=== PATIENT | male | born 1970 | race African-American/Black ===

== ENCOUNTER 2022-10-23 17:34 | Emergency (ER) | payer OTHER, SELFPAY ==
--- NOTE | 2022-10-23 17:38 | ED.URI ---
HPI - URI/Sore Throat General Chief Complaint: Upper Respiratory Infection Stated Complaint: SORE THROAT Source: patient and RN notes reviewed Mode of arrival: ambulatory Limitations: no limitations History of Present Illness HPI Narrative: Patient is a 52-year-old male who presents to the [facility] with complaints of sore throat that has been present since Saturday. Patient also endorses some nasal congestion. He denies recent fever or cough. Patient states that he saw his primary care physician yesterday who performed a strep test that was negative. He was told by his primary care physician that if his symptoms did not get any better over the next 24 hours to call their office, and they would prescribe an antibiotic. Patient states that he called his primary care office today and they recommended COVID and influenza testing and would not prescribe the antibiotic as it was a new provider, and the provider he saw yesterday is out of town. He denies chest pain or shortness of breath. Denies difficulty swallowing or handling secretions. states that their son's girlfriend was recently positive for strep. Related Data Home Medications Medication Instructions Recorded Confirmed multivitamin 1 tablet PO DAILY 05/31/20 10/23/22 sildenafil 25 mg tablet 25 mg PO DAILY PRN Erectile 11/10/21 10/23/22 Dysfunction Allergies Allergy/AdvReac Type Severity Reaction Status Date / Time No Known Allergies Allergy Verified 10/23/22 17:38 Review of Systems Review of Systems: CONSTITUTIONAL: Denies fever, chills, or sweats. EYES: Denies visual changes, redness, or discharge. ENT: Denies otalgia. Reports sore throat. Reports nasal congestion. CARDIOVASCULAR: Denies chest pain, palpitations, or edema. RESPIRATORY: Denies cough or dyspnea. GASTROINTESTINAL: Denies abdominal pain, nausea, vomiting, or diarrhea. GENITOURINARY: Denies dysuria or hematuria. SKIN: Denies rash or itching. MUSCULOSKELETAL: Denies back pain, joint pain, or myalgia. NEUROLOGIC: Denies headache, numbness, or weakness. Pertinent positives per HPI. [facility] Past Medical History Medical History Arthralgia Erectile dysfunction Tobacco use Surgical History Surgical History No history of previous surgery Family History Family History Mother Family history of kidney disease, Onset Age: 64 Father Malignant neoplasm of prostate, Onset Age: 54 Carcinoma of colon Social History Social History Social History: . Works for [employer] in [place] Smoking packs per day: 0.5 Smoking cigarettes per day: 10.0 Smoking status: Current every day smoker Tobacco type: cigarettes Alcohol intake: never Substance use: never Substance use type: does not use Lack of Transportation: No Lack of Food: Never True Current Housing: I Have Housing Concerned About Future Housing: No Difficulty Paying Gas/Electric Bills: No Difficulty Paying for Meds: No Currently Unemployed: No Education: High School Diploma/GED Difficulty w/ Childcare or Family Care: No Living arrangements: with family Occupation/Education: occupation Gender identity (if verbalized by the patient): Male Sexual Orientation (if Verbalized by the Patient): Straight or Heterosexual Agree to blood products: Yes Comments At the time of my signature, I reviewed and agree with the nursing past medical, surgical, social, and family history. There is no relevant family history pertinent to the patient complaint. Exam Narrative: GENERAL: This is a well-nourished, well-developed patient, in no apparent distress. HEAD: normocephalic, atraumatic. EYES: Sclera clear/white. Vision is grossly intact. EARS: External ears normal. Hearing grossly intact. NOSE: Ext
[2022-10-23 17:52] VITALS: BP 121/79; PULSE 84; RESP 16; TEMP 36.4; O2SAT 100
== END 2022-10-23 18:07 | disposition home or self-care (01) ==
PROVIDERS: Emergency Provider Nurse Practitioner; PCP Nurse Practitioner Family
DX: J02.0 Streptococcal pharyngitis (principal); Z20.822 Contact with and (suspected) exposure to COVID-19; F17.210 Nicotine dependence, cigarettes, uncomplicated
CPT/HCPCS: 87081; 87426; 87804; 87880; 99213; C9803; G0463

== ENCOUNTER 2023-11-08 17:44 | Emergency (ER) | payer BC, SELFPAY ==
--- NOTE | 2023-11-08 17:49 | ED.GENADULT ---
HPI - General Adult General Chief complaint: Skin/Abscess/Foreign Body Stated complaint: Bee Sting Time Seen by Provider: 11/08/23 17:52 Source: patient, RN notes reviewed and old records reviewed Mode of arrival: ambulatory Limitations: no limitations History of Present Illness HPI narrative: 53-year-old male presents to the [facility] after being stung by an insect. Denies chest pain, shortness of breath. Rash is noted. Reports being itchy. Happened just prior to arrival Rubbed alcohol on the areas, Back of neck and arms. Denies history of anaphylaxis Onset (ago): minute(s) Related Data Home Medications Medication Instructions Recorded Confirmed multivitamin 1 tablet PO DAILY 05/31/20 11/08/23 sildenafil 25 mg tablet 25 mg PO DAILY PRN Erectile 11/10/21 11/08/23 Dysfunction Allergies Allergy/AdvReac Type Severity Reaction Status Date / Time No Known Allergies Allergy Verified 11/08/23 17:50 Review of Systems Review of Systems: All systems reviewed & are unremarkable except as noted in HPI and below Constitutional: Constitutional: Reports no additional constitutional complaints Eyes: Eyes: Reports no additional eye complaints ENT: Reports system reviewed and no additional complaints, except as documented Cardiovascular: Cardiovascular: Reports no additional cardiovascular complaints, Denies chest pain and Denies dyspnea Respiratory: Respiratory: Reports no additional respiratory complaints, Denies chest congestion, Denies cough and Denies dyspnea Gastrointestinal: Gastrointestinal: Reports no additional gastrointestinal complaints, Denies abdominal pain, Denies nausea and Denies vomiting Musculoskeletal: Musculoskeletal: Reports no additional musculoskeletal complaints Integumentary/Breasts: Skin/Breast: Reports as per HPI Neurologic: Reports system reviewed and no additional complaints, except as documented Psychiatric: Psychiatric: Reports no additional psychiatric complaints Allergic/Immunologic: Allergic/Immunologic: Reports no additional allergic/immunologic complaints [facility] Past Medical History Medical History Arthralgia Erectile dysfunction Tobacco use Surgical History Surgical History No history of previous surgery Family History Family History Mother Family history of kidney disease, Onset Age: 64 Father Malignant neoplasm of prostate, Onset Age: 54 Carcinoma of colon Social History Social History Social History: . Works for [employer] in [place] Smoking packs per day: 0.5 Smoking cigarettes per day: 10.0 Smoking status: Current every day smoker Tobacco type: cigarettes Alcohol intake: never Substance use: never Substance use type: does not use Lack of Transportation: No Lack of Food: Never True Current Housing: I Have Housing Concerned About Future Housing: No Difficulty Paying Gas/Electric Bills: No Difficulty Paying for Meds: No Currently Unemployed: No Education: High School Diploma/GED Difficulty w/ Childcare or Family Care: No Living arrangements: with family Occupation/Education: occupation Gender identity (if verbalized by the patient): Male Sexual Orientation (if Verbalized by the Patient): Straight or Heterosexual Agree to blood products: Yes Comments At the time of my signature, I reviewed and agree with the nursing past medical, surgical, social, and family history. There is no relevant family history pertinent to the patient complaint. Exam Const: General: cooperative, healthy appearing, comfortable, no acute distress, well developed, alert and well nourished Nutritional Appearance: well nourished Orientation/consciousness: patient oriented x3 Limitations: no limitations HENMT: Head: normal to inspectio
[2023-11-08 17:52] VITALS: BP 98/54; PULSE 110; RESP 18; TEMP 36.3; O2SAT 96
[2023-11-08] MEDS: FAMOTIDINE 20 MG TABLET PO (18:01)
[2023-11-08] MEDS: predniSONE 20 MG TABLET 60 MG PO (18:02)
[2023-11-08 18:12] VITALS: BP 122/72; PULSE 86; RESP 16; O2SAT 94
== END 2023-11-08 18:12 | disposition home or self-care (01) ==
PROVIDERS: Emergency Provider Nurse Practitioner; PCP Family Medicine
DX: T63.441A Toxic effect of venom of bees, accidental (unintentional), initial encounter (principal); F17.210 Nicotine dependence, cigarettes, uncomplicated
CPT/HCPCS: 99213; A9270; G0463; J7512

== ENCOUNTER 2023-11-10 15:55 | Emergency (ER) | payer BC, SELFPAY ==
--- NOTE | 2023-11-10 16:05 | ED.GENADULT ---
HPI - General Adult General Chief complaint: Wound/Laceration Stated complaint: FINGER LACERATION Time Seen by Provider: 11/10/23 16:05 Source: patient Mode of arrival: ambulatory Limitations: no limitations History of Present Illness HPI narrative: 53-year-old male patient presents to the [facility] with complaints of a laceration to the left index finger. Patient states that he cut it with a chain saw about noon today. Patient states he finished up his work and his told him to come in to be seen. Patient's last tetanus shot was in 2019. Related Data Home Medications Medication Instructions Recorded Confirmed multivitamin 1 tablet PO DAILY 05/31/20 11/08/23 sildenafil 25 mg tablet 25 mg PO DAILY PRN Erectile 11/10/21 11/08/23 Dysfunction Allergies Allergy/AdvReac Type Severity Reaction Status Date / Time No Known Allergies Allergy Verified 11/10/23 16:00 Review of Systems Review of Systems: CONSTITUTIONAL: Denies fever, chills, or sweats. EYES: Denies visual changes, redness, or discharge. ENT: Denies rhinorrhea, congestion, sore throat, or otalgia. CARDIOVASCULAR: Denies chest pain, palpitations, or edema. RESPIRATORY: Denies cough or dyspnea. GASTROINTESTINAL: Denies abdominal pain, nausea, vomiting, or diarrhea. GENITOURINARY: Denies dysuria or hematuria. SKIN: Denies rash or itching. positive laceration to left index finger MUSCULOSKELETAL: Denies back pain, joint pain, or myalgia. NEUROLOGIC: Denies headache, numbness, or weakness. PSYCHIATRIC: Denies anxiety or depression. [facility] Past Medical History Medical History Arthralgia Erectile dysfunction Tobacco use Surgical History Surgical History No history of previous surgery Family History Family History Mother Family history of kidney disease, Onset Age: 64 Father Malignant neoplasm of prostate, Onset Age: 54 Carcinoma of colon Social History Social History Social History: . Works for [employer] [place] Smoking packs per day: 0.5 Smoking cigarettes per day: 10.0 Smoking status: Current every day smoker Tobacco type: cigarettes Alcohol intake: never Substance use: never Substance use type: does not use Lack of Transportation: No Lack of Food: Never True Current Housing: I Have Housing Concerned About Future Housing: No Difficulty Paying Gas/Electric Bills: No Difficulty Paying for Meds: No Currently Unemployed: No Education: High School Diploma/GED Difficulty w/ Childcare or Family Care: No Living arrangements: with family Occupation/Education: occupation Gender identity (if verbalized by the patient): Male Sexual Orientation (if Verbalized by the Patient): Straight or Heterosexual Agree to blood products: Yes Comments At the time of my signature I agree with nursing past medical history, surgical, social, and family history. There is no relevant family history pertinent to the presenting complaint. Exam Narrative: GENERAL: Well-appearing, well-nourished, and in no acute distress. HEAD: Normocephalic, atraumatic. EYES: PERRLA and EOMI. ENT: Nares clear, no rhinorrhea or epistaxis. Mucous membranes moist. NECK: Supple. No lymphadenopathy CHEST: Clear to auscultation. No respiratory distress. HEART: Regular rate and rhythm. No murmur heard. Normal peripheral pulses. ABDOMEN: Soft, nontender, nondistended, normal active bowel sounds. EXTREMITIES: Normal range of motion. No edema. Patient has approximately 5 cm laceration over the PIP joint of the left index finger on the dorsal side. Patient does have good range of motion to the finger and cap refill is normal. Radial pulses 2+ SKIN: Warm, dry, no rash. NEURO: No focal deficits. Alert and oriented x3. Course Co
[2023-11-10 16:07] VITALS: BP 131/78; PULSE 92; RESP 16; TEMP 36.9; O2SAT 98
== END 2023-11-10 17:00 | disposition home or self-care (01) ==
PROVIDERS: Emergency Provider Nurse Practitioner Family; PCP Nurse Practitioner Family
DX: S61.211A Laceration without foreign body of left index finger without damage to nail, initial encounter (principal); W29.3XXA Contact with powered garden and outdoor hand tools and machinery, initial encounter; F17.210 Nicotine dependence, cigarettes, uncomplicated
CPT/HCPCS: 12002; 99213; G0463

== ENCOUNTER 2024-04-27 02:02 | Day surgery (SDC) | payer BC, SELFPAY ==
[2024-04-09 13:59] VITALS: BMI 24.6
[2024-04-27 06:58] VITALS: BP 129/72; PULSE 80; RESP 18; TEMP 36.1; O2SAT 99
[2024-04-27] MEDS: LACTATED RINGERS 1,000 ML 150 ML IV CONT (07:07)
--- NOTE | 2024-04-27 07:33 | WPDANESEPPF ---
Anes - Initial Pre Proc Eval Procedure: Operation Date: 04/27/24 08:00 Proposed Procedures p Screening Colonoscopy - Pablo Michaud MD Date/Time: 04/27/24 07:33 Surgeon: Pablo Michaud MD Pre Op Diagnosis: family hx malignant neoplasm of digestive organs Patient Data Age: 54 Gender: M Height: 1.78 m Weight: 79.8 kg Last Vital Signs Temp 97 F L 04/27/24 06:58 Pulse 80 04/27/24 06:58 Resp 18 04/27/24 06:58 BP 129/72 04/27/24 06:58 Pulse Ox 99 04/27/24 06:58 O2 Del Method Room Air 04/27/24 06:58 Allergies Allergy/AdvReac Type Severity Reaction Status Date / Time No Known Allergies Allergy Verified 04/27/24 06:57 Home Medications ?Medication ?Instructions ?Recorded ?Confirmed ?Type multivitamin 1 tablet PO DAILY 05/31/20 04/27/24 History mupirocin 2 % topical ointment 1 applic topical BID #22 grams 11/10/23 04/09/24 Rx sildenafil 25 mg tablet 25 mg PO DAILY PRN Erectile 01/13/24 04/09/24 Rx Dysfunction #30 tabs Patient hx anesthesia problems: none Family hx anesthesia problems: none Results Review: All pre-operative results and documents have been reviewed as part of the pre-operative evaluation. [facility] Past Medical History Medical History Tobacco use Erectile dysfunction Family hx of colon cancer father Surgical History Surgical History No history of previous surgery Family History Family History Mother Family history of kidney disease, Onset Age: 64 Father Malignant neoplasm of prostate, Onset Age: 54 Carcinoma of colon Social History Social History Social History: . Works for [employer] [place] Smoking packs per day: 1 Smoking cigarettes per day: 20.0 Years smoked: 38 Smoking pack-years: 38.00 Smoking status: Former smoker Tobacco type: cigarettes Smoking end date: 05/23/23 Alcohol intake: never Substance use: never Substance use type: does not use Lack of Transportation: No Lack of Food: Never True Current Housing: I Have Housing Concerned About Future Housing: No Difficulty Paying Gas/Electric Bills: No Difficulty Paying for Meds: No Currently Unemployed: No Education: High School Diploma/GED Difficulty w/ Childcare or Family Care: No Living arrangements: with family Occupation/Education: occupation Gender identity (if verbalized by the patient): Male Sexual Orientation (if Verbalized by the Patient): Straight or Heterosexual Spiritual care concerns: No Agree to blood products: Yes Anes - Eval Final PreProcedure Day of Procedure 04/27/24 07:33 Patient weight: overweight Lungs: normal air movement Airway: Mallampati scale class II Neurological: alert and oriented Last oral intake: >/= 8 hours ASA classification: II Emergent: no Anesthetic plan: proceed Anesthesia type and monitoring: general GIVS and standard monitoring Results Review: All pre-operative results and documents have been reviewed as part of the pre-operative evaluation. Ex smoker, quit 2023, pre DM, no meds. Informed Consent: The patient's anesthetic plan and its attendant risks and benefits were discussed with the patient/family/POA. Questions were solicited and answers provided to the satisfaction of the patient/family/POA.
--- NOTE | 2024-04-27 07:52 | P.HP_ITS ---
History of Present Illness History of Present Illness Consent: Risks, benefits, and alternatives have been discussed and questions answered. Patient agrees to proceed with procedure. Chief complaint: family hx malignant neoplasm of digestive organs Narrative: Gulshan Deleon is a 54 year old male with last colonoscopy 6 years ago, father had colon ca Review of Systems Review of Systems: All systems reviewed & are unremarkable except as noted in HPI and below PMFSH Past Medical History Medical History (Updated 04/27/24 @ 07:52 by Pablo Michaud MD) Family history of colon cancer in father Tobacco use Erectile dysfunction Family hx of colon cancer father Surgical History Surgical History No history of previous surgery Family History Family History Mother Family history of kidney disease, Onset Age: 64 Father Malignant neoplasm of prostate, Onset Age: 54 Carcinoma of colon Social History Social History Social History: . Works for [employer] in [place] [employer] Smoking packs per day: 1 Smoking cigarettes per day: 20.0 Years smoked: 38 Smoking pack-years: 38.00 Smoking status: Former smoker Tobacco type: cigarettes Smoking end date: 05/23/23 Alcohol intake: never Substance use: never Substance use type: does not use Lack of Transportation: No Lack of Food: Never True Current Housing: I Have Housing Concerned About Future Housing: No Difficulty Paying Gas/Electric Bills: No Difficulty Paying for Meds: No Currently Unemployed: No Education: High School Diploma/GED Difficulty w/ Childcare or Family Care: No Living arrangements: with family Occupation/Education: occupation Gender identity (if verbalized by the patient): Male Sexual Orientation (if Verbalized by the Patient): Straight or Heterosexual Spiritual care concerns: No Agree to blood products: Yes Meds Home Medications and Allergies Home Medications ?Medication ?Instructions ?Recorded ?Confirmed ?Type multivitamin 1 tablet PO DAILY 05/31/20 04/27/24 History mupirocin 2 % topical ointment 1 applic topical BID #22 grams 11/10/23 04/09/24 Rx sildenafil 25 mg tablet 25 mg PO DAILY PRN Erectile 01/13/24 04/09/24 Rx Dysfunction #30 tabs Allergies Allergy/AdvReac Type Severity Reaction Status Date / Time No Known Allergies Allergy Verified 04/27/24 06:57 Vital Signs Vital Signs - 24 hr 04/27/24 06:58 Temperature 97 F L Pulse Rate 80 Respiratory Rate 18 Blood Pressure 129/72 Pulse Oximetry 99 Oxygen Delivery Room Air Exam Const: General: comfortable and no acute distress HENMT: Face/Nose/Sinus: Normal nares present Eyes: General: appearance normal, both eyes and all related structures Neck: Neck: no JVD Resp: Auscultation: clear to auscultation bilaterally Cardio: Rate: regular rate Rhythm: regular rhythm GI: Inspection: non-distended GI Palp: Yes Soft to palpation Skin: General skin exam: normal color Neuro: General: gait normal Speech: normal speech Extrem: General: normal to inspection Psych: Mental Status: mental status grossly normal Assessment and Plan Assessment and plan (1) Family history of colon cancer in father: Code(s): Z80.0 - Family history of malignant neoplasm of digestive organs Status: Acute Assessment and Plan: colonoscopy
[2024-04-27 08:03] VITALS: BP 116/70; PULSE 86; RESP 16; O2SAT 97
[2024-04-27 08:13] VITALS: BP 112/75; PULSE 85; RESP 16; O2SAT 100
[2024-04-27 08:23] VITALS: BP 123/83; PULSE 79; RESP 14; O2SAT 100
== END 2024-04-27 08:31 | disposition home or self-care (01) ==
PROVIDERS: PCP Family Medicine; Referring Provider Family Medicine; Visit Provider Internal Medicine Gastroenterology
PROC: 0DJD8ZZ Inspection of Lower Intestinal Tract, Via Natural or Artificial Opening Endoscopic (ICD-10-PCS; CPT 45378; principal; 2024-04-27 08:00)
DX: Z12.11 Encounter for screening for malignant neoplasm of colon (principal); K63.5 Polyp of colon; K57.30 Diverticulosis of large intestine without perforation or abscess without bleeding; K64.8 Other hemorrhoids; Z80.0 Family history of malignant neoplasm of digestive organs; Z87.891 Personal history of nicotine dependence
CPT/HCPCS: 45385; 88305; J2704; J7120